=== PATIENT | female | born 2000 | race Caucasian/White ===

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

== ENCOUNTER 2021-01-09 10:35 | Emergency (ER) | payer MEDICAID, SELFPAY ==
[2021-01-09 10:52] VITALS: BP 121/73; PULSE 92; RESP 16; TEMP 36.6; O2SAT 100; BMI 29.9
--- NOTE | 2021-01-09 11:10 | W.ED.ABDPA2 ---
HPI - Abdominal Pain General: Chief Complaint: Nausea/Vomiting/Diarrhea Stated Complaint: N/V, AB/SIDE PAIN Time Seen by Provider: 01/09/21 10:51 History of Present Illness: Associated Symptoms: Denies chills, diarrhea, dysuria, fever(s), nausea, syncope and vomiting Related Data: Date of Last Menstrual Period: 12/19/20 Review of Systems General: Reports: 10 or more systems reviewed and unremarkable except in HPI and below Const: Denies: fever(s), chills or body aches Eyes: Denies: change in vision ENMT: Denies: throat pain Card: Denies: chest pain, edema or syncope Resp: Denies: dyspnea or productive cough GI: Denies: abdominal pain, nausea, vomiting or diarrhea : Denies: flank pain, dysuria or urinary frequency Musc: Denies: neck pain, back pain, extremity pain or extremity swelling Skin/Breast: Denies: rash or erythema Neuro: Denies: headache(s), numbness in extremities, weakness in extremities, lack of coordination or difficulty walking PFS ED PFSH: Social History (Updated 01/26/20 @ 15:08 by Carolee Zarate LPN) Smoking and tobacco status: never smoked Alcohol intake: never Female Reproductive History: Date of last menstrual period: 12/19/20 Course Vital Signs: Vital signs: Vital Signs Temperature 97.8 F 01/09/21 10:52 Pulse Rate 92 01/09/21 10:52 Respiratory Rate 16 01/09/21 10:52 Blood Pressure 121/73 01/09/21 10:52 Pulse Oximetry 100 01/09/21 10:52 Discharge Plan Discharge Prescriptions: No Action nitrofurantoin monohyd/m-cryst [Macrobid] 100 mg capsule 100 mg PO Q12H 5 Days Qty: 10 RF: 0 prednisone 20 mg tablet 20 mg PO DAILY 5 Days Qty: 5 RF: 0 ondansetron 4 mg tablet,disintegrating 4 mg PO Q6H PRN (Reason: nausea and vomiting) Qty: 14 RF: 0 Coding Level of Care Code ED Cable Installation Technician for Heidy Eaton
[2021-01-09 11:25] LABS: Basophils # 0.1 10^3/uL (0.0-0.1); Basophils % 0.7 %; Eosinophils # 0.2 10^3/uL (0.0-0.8); Eosinophils % 1.9 %; Hematocrit 40.5 % (37.0-47.0); Hemoglobin 13.2 g/dL (11.5-15.3); Lymphocytes # 3.1 10^3/uL (1.5-6.5); Lymphocytes % 38.7 %; Mean Corpuscular HGB Conc 32.6 g/dL (30.0-36.0); Mean Corpuscular Hemoglobin 27.8 pg (28.0-34.0); Mean Corpuscular Volume 85.3 fL (81-99); Mean Platelet Volume 11.5 fL (7.4-10.4); Monocytes # 0.8 10^3/uL (0.2-0.9); Monocytes % 10.4 %; Neutrophils # 3.88 10^3/uL (1.8-8.0); Neutrophils % 48.1 %; Nucleated Red Blood Cells % 0 %; Platelet Count 290 10^3/cmm (130-400); Red Blood Count 4.75 10^6/uL (4.1-5.3); Red Cell Distribution Width 12.6 % (12.1-15.1); White Blood Count 8.1 10^3/uL (4.5-13.0)
[2021-01-09 11:28] LABS: Add Urine Microscopic? YES; Bilirubin Urine Neg (Negative); Blood Urine 3+ (Negative); Glucose Urine UA Norm (Normal); Ketones Urine Negative (Negative); Leukocyte Esterase Urine Trace (Negative); Nitrate Urine Negative (Negative); Protein Urine Neg (Negative); Specific Gravity, Urine 1.015 (1.005-1.030); Urine Appearance SL Hazy (CLEAR); Urine Color Yellow (Yellow); Urobilinogen Urine Norm (Negative); pH Urine 6.5 (5-7)
[2021-01-09 11:34] LABS: Bacteria Urine 2+ /hpf; Squamous Epithelial Cell Urine 15-25 /hpf (0-5); WBC Urine 0-4 /hpf (0-5)
[2021-01-09 11:37] LABS: Add Urine Culture? No
[2021-01-09] MEDS: ondansetron 2 mg/ML SDV 2 mL 4 MG IVP (11:40)
[2021-01-09] MEDS: sodium chloride 0.9% 1,000 ML 999 ML IV (11:40)
--- NOTE | 2021-01-09 11:43 | ED_ITS ---
HPI - Nausea/Vomiting/Diarrhea General: Chief complaint: Nausea/Vomiting/Diarrhea Stated complaint: N/V, AB/SIDE PAIN Time Seen by Provider: 01/09/21 10:51 History of Present Illness: HPI Narrative: 20-year-old female presents emergency room comes in complaining nausea vomiting dizziness. She was seen about a month ago for the same thing states been going on since that time. She denies any fever sweats chills no dysuria urgency or frequency she refers to some pain in the left flank but has no urinary symptoms denies hematuria. She denies any hematochezia melena hematemesis coffee-ground emesis. MD elicited complaint: nausea and vomiting Onset (ago): week(s) Description of vomiting: food contents and watery Associated nausea: Yes Associated abdominal pain: Yes Location of pain: Diffuse Radiation: left flank Pain consistency: constant Severity: moderate Quality: cramping Exacerbating factors: none Relieving factors: none Associated symtoms: Reports fevers/chills, anorexia, malaise and nausea; Denies altered mental status, anxiety, bloating, change in vision, chest pain, cough, diaphoresis, decreased urine output, dizziness, dysuria, epistaxis, fatigue, fecal incontinence, headache(s), myalgias, numbness, palpitations, rash, short of breath, syncope, tenesmus, tinnitus or weakness Review of Systems Const: Reports: malaise; Denies: fatigue or diaphoresis Eyes: Denies: change in vision ENMT: Denies: tinnitus or epistaxis Card: Denies: chest pain, palpitations or syncope Resp: Denies: dyspnea, productive cough or non-productive cough GI: Reports: nausea; Denies: bloating or fecal incontinence : Denies: dysuria Skin/Breast: Denies: rash or pruritus Neuro: Denies: headache(s) or dizziness Psych: Denies: anxiety PFSH ED PFSH: Social History Smoking and tobacco status: never smoked Alcohol intake: never Female Reproductive History: Date of last menstrual period: 12/19/20 Physical Exam Const: COMMON NORMALS: no acute distress EXAM LIMITATIONS: no altered mental status GENERAL APPEARANCE: cooperative and comfortable ORIENTATION/CONSCIOUSNESS: Yes awake, Yes oriented to person, Yes oriented to place and Yes oriented to time HENMT: COMMON NORMALS: normocephalic, atraumatic and hearing grossly normal bilaterally HEAD & SCALP: normocephalic and atraumatic Neck/C-Spine: COMMON NORMALS: no JVD Resp: COMMON NORMALS: normal respiratory effort, No retractions, No use of accessory muscles and clear to auscultation bilaterally AUSCULTATION: clear to auscultation bilaterally Cardio: COMMON NORMALS: no JVD, regular rate, regular rhythm and No murmurs present (Cardio) RATE: regular rate RHYTHM: regular rhythm GI: COMMON NORMALS: Soft to palpation and No hepatosplenomegaly present AUSCULTATION: Yes normoactive bowel sounds PALPATION: Yes Soft to palpation, No Tenderness to palpation present (GI), No Guarding due to palpation present (GI) and Yes No hepatosplenomegaly present Extremity: COMMON NORMALS: normal to inspection, capillary refill normal, no clubbing, cyanosis or edema, no calf tenderness and no pedal edema Neuro: SENSORIUM/ORIENTATION: Yes oriented to person, Yes oriented to place and Yes oriented to time Skin: COMMON NORMALS: no rashes or lesions noted GENERAL SKIN EXAM: no rashes or lesions noted Course Vital Signs: Vital signs: Vital Signs Temperature 97.8 F 01/09/21 10:52 Pulse Rate 64 01/09/21 13:24 Respiratory Rate 16 01/09/21 13:24 Blood Pressure 121/73 01/09/21 10:52 Pulse Oximetry 99 01/09/21 13:24 MDM - Nausea/Vomiting/Diarrhea MDM Narrative: Medical decision making narrative: Viewed findings with the patient. It looks like probably getting symptoms mostly from ruptured ovarian cyst. She has been on Depo but has not been that helpful for her in talking with her. Encourage her to go back and see your primary care doctor or gynecology. She is complaining of dysuria when I talked her at the time of discharge her urine was not real convincing and look more like contaminant however since she is having symptoms I gave her 5 days of Macrobid. Lab Data: Labs: Lab Results 01/09/21 01/09/21 01/09/21 Range/Units 11:18 11:18 11:18 WBC 8.1 (4.5-13.0) 10^3/ uL RBC 4.75 (4.1-5.3) 10^6/u L Hgb 13.2 (11.5-15.3) g/dL Hct 40.5 (37.0-47.0) % MCV 85.3 (81-99) fL MCH 27.8 L (28.0-34.0) pg MCHC 32.6 (30.0-36.0) g/dL RDW 12.6 (12.1-15.1) % Plt Count 290 (130-400) 10^3/c mm MPV 11.5 H (7.4-10.4) fL Neut % (Auto) 48.1 % Lymph % (Auto) 38.7 % [place] % (Auto) 10.4 % Eos % (Auto) 1.9 % Baso % (Auto) 0.7 % Neut # (Auto) 3.88 (1.8-8.0) 10^3/u L Lymph # (Auto) 3.1 (1.5-6.5) 10^3/u L [place] # (Auto) 0.8 (0.2-0.9) 10^3/u L Eos # (Auto) 0.2 (0.0-0.8) 10^3/u L Baso # (Auto) 0.1 (0.0-0.1) 10^3/u L Nucleated RBC % (a uto) 0 % Nucleated RBCs # 0.0 /100WBC Sodium 138 (136-145) mmol/L Potassium 3.9 (3.5-5.1) mmol/L Chloride 104 (98-107) mmol/L Carbon Dioxide 25 (22-29) mmol/L Anion Gap 12.9 (5-19) BUN 13 (6-20) mg/dL Creatinine 0.7 (0.5-0.9) mg/dL GFR Calculation 107.8 (90-130) mL/min Glucose 70 (65-115) mg/dL Calculated Osmolal ity 285 (285-295) mOsm/k g Calcium 8.9 (8.5-10.5) mg/dL Total Bilirubin 1.0 (0.15-1.2) mg/dL AST 15 (0-32) U/L ALT 13 (0-33) U/L Alkaline Phosphata se 80 (35-105) IU/L Total Protein 7.0 (6.6-8.7) g/dL Albumin 4.6 (3.5-5.2) g/dL Globulin 2.4 (1.3-4.6) g/dL Lipase 25 (13-60) U/L HCG, Qual Negative (Negative) Urine Color (Yellow) Urine Appearance (CLEAR) Urine pH (5-7) Ur Specific Gravit y (1.005-1.030) Urine Protein (Negative) Urine Glucose (UA) (Normal) Urine Ketones (Negative) Urine Blood (Negative) Urine Nitrate (Negative) Urine Bilirubin (Negative) Urine Urobilinogen (Negative) mg/dL Ur Leukocyte Page ase (Negative) Urine RBC (0-2) /hpf Urine WBC (0-5) /hpf Ur Squamous Epith Cells (0-5) /hpf Amorphous Sediment Urine Bacteria (NONE) /hpf 01/09/21 Range/Units 11:18 WBC (4.5-13.0) 10^3/ uL RBC (4.1-5.3) 10^6/u L Hgb (11.5-15.3) g/dL Hct (37.0-47.0) % MCV (81-99) fL MCH (28.0-34.0) pg MCHC (30.0-36.0) g/dL RDW (12.1-15.1) % Plt Count (130-400) 10^3/c mm MPV (7.4-10.4) fL Neut % (Auto) % Lymph % (Auto) % [place] % (Auto) % Eos % (Auto) % Baso % (Auto) % Neut # (Auto) (1.8-8.0) 10^3/u L Lymph # (Auto) (1.5-6.5) 10^3/u L [place] # (Auto) (0.2-0.9) 10^3/u L Eos # (Auto) (0.0-0.8) 10^3/u L Baso # (Auto) (0.0-0.1) 10^3/u L Nucleated RBC % (a uto) % Nucleated RBCs # /100WBC Sodium (136-145) mmol/L Potassium (3.5-5.1) mmol/L Chloride (98-107) mmol/L Carbon Dioxide (22-29) mmol/L Anion Gap (5-19) BUN (6-20) mg/dL Creatinine (0.5-0.9) mg/dL GFR Calculation (90-130) mL/min Glucose (65-115) mg/dL Calculated Osmolal ity (285-295) mOsm/k g Calcium (8.5-10.5) mg/dL Total Bilirubin (0.15-1.2) mg/dL AST (0-32) U/L ALT (0-33) U/L Alkaline Phosphata se (35-105) IU/L Total Protein (6.6-8.7) g/dL Albumin (3.5-5.2) g/dL Globulin (1.3-4.6) g/dL Lipase (13-60) U/L HCG, Qual (Negative) Urine Color Yellow (Yellow) Urine Appearance Sl hazy (CLEAR) Urine pH 6.5 (5-7) Ur Specific Gravit y 1.015 (1.005-1.030) Urine Protein Neg (Negative) Urine Glucose (UA) Norm (Normal) Urine Ketones Negative (Negative) Urine Blood 3+ H (Negative) Urine Nitrate Negative (Negative) Urine Bilirubin Neg (Negative) Urine Urobilinogen Norm (Negative) mg/dL Ur Leukocyte Page ase Trace H (Negative) Urine RBC 5-10 H (0-2) /hpf Urine WBC 0-4 H (0-5) /hpf Ur Squamous Epith Cells 15-25 H (0-5) /hpf Amorphous Sediment Not Reportable Urine Bacteria 2+ H (NONE) /hpf Discharge Plan Discharge Patient Disposition: Home Clinical Impression: Ovarian cyst, Nausea & vomiting, Cystitis Condition: Stable Prescriptions: New Zofran 4 mg tablet 4 mg PO Q6H PRN (Reason: nausea and vomiting) Qty: 20 RF: 0 diclofenac sodium 75 mg tablet,delayed release (DR/EC) 75 mg PO Q12H PRN (Reason: pain) Qty: 20 RF: 0 Discontinued ibuprofen 800 mg tablet 800 mg PO TID PRN (Reason: Pain) RF: 0 No Action ondansetron 4 mg tablet,disintegrating 4 mg PO Q6H PRN (Reason: nausea and vomiting) Qty: 14 RF: 0 Clindacin P 1 % swab See Rx Instructions .ROUTE .COMPLEX RF: 0 DOK 100 mg capsule 100 mg PO BID PRN (Reason: Constipation) RF: 0 montelukast 10 mg tablet 10 mg PO DAILY RF: 0 Claritin 10 mg Tablet 10 mg PO DAILY PRN (Reason: Allergy Symptoms) RF: 0 medroxyprogesterone 150 mg/mL syringe 150 mg IM Q90D RF: 0 Discharge Orders: Discharge ED (Routine); Ordered 01/09/21 Ordered By: Nile Bravo Referrals: Langford,MAYTE Carlos [Primary Care Provider] - Discharge Diet: Usual diet Discharge Activity: Increase activity as tolerated Patient Instructions: Opioid Safety Coding Level of Care Code ED Refractory Worker for Chg Fwd Exam Comprehensive
[2021-01-09 11:44] LABS: HCG, Serum Qual Negative (Negative)
[2021-01-09 11:45] LABS: Alanine Aminotransferase 13 U/L (0-33); Albumin Level 4.6 g/dL (3.5-5.2); Alkaline Phosphatase 80 IU/L (35-105); Anion Gap 12.9 (5-19); Aspartate Amino Transferase 15 U/L (0-32); Blood Urea Nitrogen 13 mg/dL (6-20); Calcium 8.9 mg/dL (8.5-10.5); Carbon Dioxide 25 mmol/L (22-29); Chloride 104 mmol/L (98-107); Globulin 2.4 g/dL (1.3-4.6); Glomerular Filtration Rate 107.8 mL/min (90-130); Glucose 70 mg/dL (65-115); Lipase 25 U/L (13-60); Osmolality Calculated 285 mOsm/kg (285-295); Potassium 3.9 mmol/L (3.5-5.1); Sodium 138 mmol/L (136-145)
--- NOTE | 2021-01-09 12:05 | CT_ITS ---
WS: [id number] CT ABDOMEN PELVIS TECHNIQUE: Contrast-enhanced CT of the abdomen and pelvis with coronal and sagittal reformatted image s. CLINICAL INFORMATION: abd pain COMPARISON: 6 26,018 DLP: 1219.[address] scans at [facility] use at least one of these dose optimization techniques: automat ed exposure control; mA and/or kV adjustment per patient size (includes targeted exams where dose is matched to clinical indication); or iterative reconstruction. FINDINGS: Normal liver. Normal portal vein and splenic vein. Gallbladder is contracted. Normal spleen. Normal G E junction. Lung bases are well aerated. Normal pancreatic parenchymal enhancement. Normal portal vei n and splenic vein. Adrenal glands are normal. No hydronephrosis in either kidney. Tiny fat-containin g umbilical hernia. Urine distended bladder. Heterogeneous physiologic uterine enhancement with a small amount of free fl uid in the cul-de-sac. Multiple follicular ovaries bilaterally. Normal sigmoid colon. Colon is decomp ressed. No evidence of small or large obstruction. Normal appendix in the right lower quadrant. No ev idence of acute appendicitis. No abdominal or pelvic lymphadenopathy. No inguinal lymphadenopathy. Mi ld disc bulging L5-S1. CT/CT abdomen pelvis w con* [id number] IMPRESSION: 1. Appendix is normal in right lower quadrant. No evidence of acute appendicit is. 2. Heterogeneous physiologic uterine enhancement with a small amount of free f luid in the cul-de-sac. 3. Multifollicular ovaries bilaterally. 4. No evidence of small or large bowel obstruction. 5. No hydronephrosis in either kidney. 6. Gallbladder is contracted.
[2021-01-09] MEDS: iohexol 300 mg/mL 100 mL Btl IV (12:18)
[2021-01-09 13:24] VITALS: PULSE 64; RESP 16; O2SAT 99
--- NOTE | 2021-01-09 18:01 | PC.NURSE ---
antibiotic called into [facility] pharmacy in [place] at [phone]
== END 2021-01-09 13:25 | disposition home or self-care (01) ==
PROVIDERS: Emergency Provider Family Medicine; PCP Nurse Practitioner Family
DX: N30.90 Cystitis, unspecified without hematuria (principal); N83.209 Unspecified ovarian cyst, unspecified side
CPT/HCPCS: 74177; 80053; 81001; 83690; 84703; 85025; 96361; 96374; 99283; J2405; J7030; Q9967

== ENCOUNTER 2021-02-12 13:13 | Outpatient (CLI) | payer MEDICAID, SELFPAY ==
--- NOTE | 2021-02-12 13:22 | XRR_ITS ---
PROCEDURE INFORMATION: Exam: XR Right Foot Exam date and time: 02/12/2021 1:23 PM Age: 20 years old Clinical indication: Pain; Foot; Right; Additional info: Pain R foot TECHNIQUE: Imaging protocol: XR Right foot. Views: 3 or more views. COMPARISON: CR Foot 3 views, RIGHT* [id number] 08/07/2018 2:52 PM FINDINGS: Bones/joints: Negative for acute bony abnormality. Soft tissues: Normal. XR/XR foot RT min 3V* [id number] IMPRESSION: No acute findings.
== END 2021-02-12 13:14 | disposition home or self-care (01) ==
PROVIDERS: PCP Nurse Practitioner Family; Visit Provider Nurse Practitioner Family
DX: M79.671 Pain in right foot (principal)
CPT/HCPCS: 73630

== ENCOUNTER 2021-03-17 18:44 | Emergency (ER) | payer MEDICAID, SELFPAY ==
[2021-03-17 18:56] VITALS: BMI 26.6
[2021-03-17 21:57] VITALS: BP 155/71; PULSE 76; RESP 20; O2SAT 98
[2021-03-17 22:24] LABS: Bilirubin Urine Neg (Negative); Glucose Urine UA Norm (Normal); Ketones Urine Negative (Negative); Nitrate Urine Negative (Negative); Protein Urine Neg (Negative); Urine Appearance Clear (CLEAR); Urine Color Yellow (Yellow); Urobilinogen Urine Norm (Negative); pH Urine 5 (5-7)
[2021-03-17 22:25] LABS: Add Urine Microscopic? YES; Blood Urine 2+ (Negative); Leukocyte Esterase Urine Negative (Negative)
[2021-03-17 22:30] LABS: Add Urine Culture? No; Bacteria Urine 1+ /hpf; Squamous Epithelial Cell Urine 0-4 /hpf (0-5)
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
[2021-03-17 23:06] VITALS: BP 117/76; PULSE 82; RESP 18; O2SAT 99
[2021-03-17] MEDS: HYDROcodone-acetaminophen 5-325 mg Tablet 1 TAB PO (23:10)
[2021-03-18 00:04] VITALS: BP 140/82; PULSE 70; RESP 16; TEMP 36.9; O2SAT 98
== END 2021-03-18 00:06 | disposition home or self-care (01) ==
PROVIDERS: Emergency Medicine; Emergency Provider Nurse Practitioner Family; PCP Nurse Practitioner Family
DX: S20.211A Contusion of right front wall of thorax, initial encounter (principal); F17.210 Nicotine dependence, cigarettes, uncomplicated; Y04.2XXA Assault by strike against or bumped into by another person, initial encounter
CPT/HCPCS: 71101; 76705; 81001; 81025; 99283

== ENCOUNTER → 2021-03-19 13:39 | Outpatient (BNVA) | payer MEDICAID, SELFPAY | PROVIDERS: PCP Nurse Practitioner Family; Visit Provider Psychiatry & Neurology Psychiatry | DX: F39 Unspecified mood [affective] disorder (principal); Q86.0 Fetal alcohol syndrome (dysmorphic) | CPT/HCPCS: 90792 ==

== ENCOUNTER 2021-03-22 22:15 | Emergency (ER) | payer MEDICAID, SELFPAY ==
[2021-03-22 22:51] VITALS: BP 120/73; PULSE 77; RESP 16; TEMP 36.8; O2SAT 100; BMI 26.6
--- NOTE | 2021-03-23 01:04 | W.ED.BACK ---
HPI - Back Pain/Injury General: Chief Complaint: Back Pain/Injury Stated Complaint: pain R side rib Time Seen by Provider: 03/23/21 01:04 History of Present Illness: HPI Narrative: Patient comes in for right posterior rib pain persistent from injury on . Patient appears well. no acute distress noted. appears in mild pain Review of Systems General: Reports: 10 or more systems reviewed and unremarkable except in HPI and below Musc: Reports: other (right rib pain) PFS ED PFSH: Medical History (Updated 03/23/21 @ 01:11 by EDUARDO Posey) alcohol syndrome Mood disorder Social History Smoking and tobacco status: current some day smoker Alcohol intake: never Female Reproductive History: Date of last menstrual period: 12/14/20 Physical Exam Const: COMMON NORMALS: no acute distress and patient oriented x3 GENERAL APPEARANCE: cooperative HENMT: COMMON NORMALS: normocephalic and Normal external nose present HEAD & SCALP: normal to inspection and normocephalic NOSE: Normal external nose present Eye: GENERAL EYE: appearance normal, both eyes and all related structures Neck/C-Spine: COMMON NORMALS: full ROM Chest: OTHER: right posterior rib pain, no bruising noted to area of tenderness Resp: COMMON NORMALS: normal respiratory effort EFFORT & INSPECTION: Yes able to speak in complete sentences Cardio: COMMON NORMALS: regular rate and regular rhythm RATE: regular rate RHYTHM: regular rhythm GI: COMMON NORMALS: non-tender : COMMON NORMALS: Yes no CVA tenderness BLADDER/KIDNEY EXAM: Yes no CVA tenderness Back/Pelvis: COMMON NORMALS: no CVA tenderness and thoracic and lumbar spine normal to inspection Extremity: COMMON NORMALS: normal to inspection Neuro: COMMON NORMALS: patient oriented x3 and moves all extremities Psych: COMMON NORMALS: mental status grossly normal and cooperative Skin: COMMON NORMALS: no rashes or lesions noted GENERAL SKIN EXAM: no rashes or lesions noted Course Vital Signs: Vital signs: Vital Signs Temperature 98.2 F 03/22/21 22:51 Pulse Rate 77 03/22/21 22:51 Respiratory Rate 16 03/22/21 22:51 Blood Pressure 120/73 03/22/21 22:51 Pulse Oximetry 100 03/22/21 22:51 MDM - Back Pain/Injury MDM Narrative: Medical decision making narrative: Patient comes in for right rib persistent pain after injury one week ago. Exam notes right posterior rib tenderness, no sign of bruising or crepitus. Differential diagnosis contusion rib, malingering vs drug seeking behavior, occult rib fracture. Although a rib fracture may be present it would be minute and does not require repeat imaging, Patient was reassured that she has a bruise and it may take two to four weeks to heal, she needs to stay active and f/u with primary care for further treatment. Discharge Plan Discharge Patient Disposition: Home Clinical Impression: Contusion of rib on right side Qualifiers: Encounter type: subsequent encounter Qualified Code(s): S20.211D - Contusion of right front wall of thorax, subsequent encounter Condition: Stable Prescriptions: New diclofenac sodium 50 mg tablet,delayed release (DR/EC) 50 mg PO BID Qty: 10 RF: 0 No Action ranitidine HCl 150 mg tablet PO RF: 0 DOK 100 mg capsule 100 mg PO BID PRN (Reason: Constipation) RF: 0 Claritin 10 mg Tablet 10 mg PO DAILY PRN (Reason: Allergy Symptoms) RF: 0 Discharge Orders: Discharge ED (Routine); Ordered 03/23/21 Ordered By: Manuel Beard Referrals: Breanna Langford APN [Primary Care Provider] - Discharge Diet: Usual diet Discharge Activity: Increase activity as tolerated Patient Instructions: Contusion in Children (ED), Opioid Safety Activity Restrictions/Additional Instructions: continue with acetaminophen or ibuprofen for pain, Use ice or heat for further pain relief. Follow-up with primary care in one week, return to ER for new concerns Coding Level of Care Code ED Lead Based Paint Technician for Heidy Fwzeferino Exam Comprehensive
[2021-03-23] MEDS: ketorolac 30 mg/mL INJ IM (01:22)
[2021-03-23] MEDS: orphenadrine 30 mg/mL Inj 2 mL 60 MG IM (01:24)
[2021-03-23 01:25] VITALS: BP 111/74; PULSE 90; RESP 17; O2SAT 100
[2021-03-23 01:42] VITALS: BP 114/76; PULSE 90; RESP 16; O2SAT 100
== END 2021-03-23 01:44 | disposition home or self-care (01) ==
PROVIDERS: Emergency Provider Nurse Practitioner Family; PCP Nurse Practitioner Family
DX: S20.211A Contusion of right front wall of thorax, initial encounter (principal); F17.210 Nicotine dependence, cigarettes, uncomplicated; X58.XXXA Exposure to other specified factors, initial encounter
CPT/HCPCS: 96372; 99283; J1885; J2360

== ENCOUNTER → 2021-03-23 11:30 | Outpatient (BNVA) | payer MEDICAID, SELFPAY | PROVIDERS: PCP Nurse Practitioner Family; Visit Provider Nurse Practitioner Family | DX: Z11.3 Encounter for screening for infections with a predominantly sexual mode of transmission (principal) | CPT/HCPCS: 81025; 87491; 87591; 87661 ==

== ENCOUNTER → 2021-04-20 12:45 | Outpatient (BNVA) | payer MEDICAID, SELFPAY | PROVIDERS: PCP Nurse Practitioner Family; Visit Provider Psychiatry & Neurology Psychiatry | DX: F39 Unspecified mood [affective] disorder (principal); F79 Unspecified intellectual disabilities; Q86.0 Fetal alcohol syndrome (dysmorphic) | CPT/HCPCS: 99214 ==

== ENCOUNTER → 2022-11-04 15:50 | Outpatient (BNVA) | payer OTHER, SELFPAY | PROVIDERS: PCP Nurse Practitioner Family; Visit Provider Obstetrics & Gynecology | DX: N92.6 Irregular menstruation, unspecified (principal) | CPT/HCPCS: 83036; 83525; 84443 ==

== ENCOUNTER → 2023-02-05 14:20 | Outpatient (BNVA) | payer OTHER, SELFPAY | PROVIDERS: PCP Nurse Practitioner Family; Visit Provider Obstetrics & Gynecology | DX: Z01.419 Encounter for gynecological examination (general) (routine) without abnormal findings (principal) | CPT/HCPCS: 88175 ==

== ENCOUNTER → 2023-06-19 14:59 | Outpatient (BNVA) | payer OTHER, SELFPAY | PROVIDERS: PCP Nurse Practitioner Family; Visit Provider Podiatrist Foot & Ankle Surgery | DX: M79.671 Pain in right foot (principal); M79.672 Pain in left foot; M72.2 Plantar fascial fibromatosis; M79.604 Pain in right leg; M79.605 Pain in left leg; M21.6X1 Other acquired deformities of right foot; M21.6X2 Other acquired deformities of left foot | CPT/HCPCS: 73630 ==

== ENCOUNTER 2023-07-28 06:00 | Outpatient (RCR) | payer MEDICARE, SELFPAY | END 2023-08-07 23:59 | disposition home or self-care (01) | LOC: TPT 06:00 | PROVIDERS: PCP Nurse Practitioner Family; Visit Provider Nurse Practitioner Family | DX: M94.0 Chondrocostal junction syndrome [Tietze] (principal) | CPT/HCPCS: 97110; 97162 ==

== ENCOUNTER 2023-08-08 06:00 | Outpatient (RCR) | payer MEDICARE, SELFPAY | END 2023-09-07 23:59 | disposition home or self-care (01) | LOC: TPT 06:00 | PROVIDERS: PCP Nurse Practitioner Family; Visit Provider Nurse Practitioner Family | DX: M94.0 Chondrocostal junction syndrome [Tietze] (principal) | CPT/HCPCS: 97110 ==

== ENCOUNTER 2023-09-02 23:38 | Emergency (ER) | payer MEDICARE, MEDICAID, SELFPAY ==
[2023-09-02 23:44] VITALS: BP 122/85; PULSE 91; RESP 16; TEMP 36.4; O2SAT 98; BMI 33.3
--- NOTE | 2023-09-03 00:11 | ED_ITS ---
HPI - General Adult General: Chief complaint: Abdominal Pain Stated complaint: left arm, right leg pain, headache Time Seen by Provider: 09/02/23 23:55 Source: patient and family Mode of arrival: ambulatory Limitations: no limitations History of Present Illness: Patient is a 22-year-old female presents to ED today with a complaint of pain throughout her entire left arm that she describes as a burning sensation. She is also having similar intermittent discomforts to the right lower leg near her foot as well as symptoms to the right posterior scalp. Patient denies any injury or trauma however later states she does physical therapy due to bad posture and was doing some exercising involving wall push-ups. Patient has not noticed any redness or swelling to any of the area. She has not noticed any coolness or pallor. She does have another complain of mild body aches and positive COVID exposure. Denies cough, shortness of breath, difficulty breathing, or fevers. Onset (ago): day(s) Severity: moderate Quality: burning Pain Consistency: constant and intermittent Relieving factors: none Exacerbating factors: movement Associated symptoms: Deny chest pain, dyspnea, malaise, nausea, palpitations, syncope or vomiting Treatments prior to arrival: none Review of Systems Const: Reports: body aches; Denies: fever(s), chills, fatigue or malaise Eyes: Denies: change in vision, blurry vision, photophobia, floaters or seeing flashes Card: Denies: chest pain, palpitations, irregular heart rhythm, edema, swelling of feet/ankles, lightheadedness, syncope, pre-syncope, dyspnea on exertion or orthopnea Resp: Denies: dyspnea GI: Denies: abdominal pain, nausea, vomiting or diarrhea Musc: Reports: extremity pain; Denies: neck pain, back pain, extremity swelling, joint pain, joint swelling, joint redness, joint warmth or joint stiffness Neuro: Denies: numbness in extremities, weakness in extremities or sensory changes PFSH ED PFSH: Medical History Intellectual disability Mood disorder alcohol syndrome Family History Family/Other Diabetes uncle Father Heart disease Grandfather Heart disease Other Breast cancer Denies family history of Colon cancer Ovarian cancer Hypercholesteremia Hypertension Uterine cancer Thyroid disease Stroke Social History Substance/Drug Use: never Female Reproductive History: Date of last menstrual period: 07/24/23 Physical Exam Const: COMMON NORMALS: no acute distress, patient oriented x3, no limitations, alert and well nourished GENERAL APPEARANCE: cooperative HENMT: COMMON NORMALS: normocephalic and atraumatic HEAD & SCALP: normal to inspection, normocephalic and atraumatic FACE & SINUS: normal facial exam and face symmetric Eye: GENERAL EYE: appearance normal, both eyes and all related structures Neck/C-Spine: COMMON NORMALS: full ROM, no lymphadenopathy and no meningeal signs GENERAL: Yes normal visual inspection, No anterior neck swelling and No submandibular swelling Chest: COMMONS NORMALS: normal inspection of the chest and normal palpation of entire chest wall Resp: COMMON NORMALS: normal respiratory effort and clear to auscultation bilaterally AUSCULTATION: clear to auscultation bilaterally Cardio: COMMON NORMALS: regular rate and regular rhythm RATE: regular rate RHYTHM: regular rhythm Back/Pelvis: COMMON NORMALS: thoracic and lumbar spine normal to inspection, no thoracic nor lumbar tenderness and thoraco-lumbar ROM normal Extremity: COMMON NORMALS: normal to inspection, capillary refill normal, no joint enlargement, no clubbing, cyanosis or edema, no calf tenderness and no pedal edema GENERAL: Yes normal exam except as noted LEFT UPPER EXTREMITY: Yes shoulder joint, Yes upper arm, Yes elbow joint, Yes lower arm and Yes wrist OTHER: pt reporting pain throughout L UE worse with any form of palpation or movement; there are no abnormal objective physical findings to extremity; no edema/swelling, normal color/temp, normal distal pulses/cap refill, sensation intact Neuro: HERMINIA COMA SCALE: document GCS findings [place] coma scale eye opening: Spontaneous [place] coma scale verbal response: Orientated [place] coma scale motor response: Obey commands [place] coma scale total score: 15 COMMON NORMALS: patient oriented x3, moves all extremities, no focal motor deficits and no sensory deficits noted SENSORIUM/ORIENTATION: Yes alert MENINGEAL SIGNS: Yes no meningeal signs Skin: COMMON NORMALS: no rashes or lesions noted GENERAL SKIN EXAM: no rashes or lesions noted Course Vital Signs: Vital signs: Vital Signs Temperature 97.6 F 09/02/23 23:44 Pulse Rate 91 09/02/23 23:44 Respiratory Rate 16 09/02/23 23:44 Blood Pressure 122/85 09/02/23 23:44 Pulse Oximetry 98 09/02/23 23:44 Oxygen Delivery Me thod Room Air 09/02/23 23:44 MDM - General Adult Medical Decision Making Patient here with complaints of bodyaches and positive COVID exposure as well as nonspecific complaints to her right posterior scalp, left arm, and right lower leg/foot. There are no clinical/objective findings to the extremities. I have no concern for emergent processes regarding these. Will obtain COVID PCR swab. Recommend OTC analgesics as well as ice and heat. Recommend follow-up with primary care later this week if symptoms persist. Return to ED precautions given. Medical Records I reviewed the patient's medical records. No radiology studies performed this visit Discharge Plan Discharge Patient Disposition: Home Clinical Impression: Exposure to 2019-nCoV Upper extremity pain Qualifiers: Laterality: left Qualified Code(s): M79.602 - Pain in left arm Condition: Stable Prescriptions: No Action ibuprofen 800 mg tablet PO ondansetron HCl 4 mg tablet PO pantoprazole 40 mg tablet,delayed release (DR/EC) PO furosemide 20 mg tablet PO Discharge Orders: Discharge ED (Routine); Ordered 09/03/23 Ordered By: Valeri Hussein Referrals: Dannielle Miller FNP [Primary Care Provider] - Coding Level of Care Code ED Janitor Caretaker for Heidy Eaton
[2023-09-03 02:19] LABS: Adenovirus Not Detected (NOT DETECT); Chlamydia Pneumoniae Not Detected (NOT DETECT); Coronavirus 229E,HKU1,NL63,OC4 Not Detected (NOT DETECT); Human Metapneumovirus Not Detected (NOT DETECT); Human Rhinovirus/Enterovirus Not Detected (NOT DETECT); Influenza A Not Detected (NOT DETECT); Influenza A H1 Not Detected (NOT DETECT); Influenza A H1-2009 Not Detected (NOT DETECT); Influenza A H3 Not Detected (NOT DETECT); Influenza B Not Detected (NOT DETECT); Mycoplasma Pneumoniae Not Detected (NOT DETECT); Parainfluenza Virus Type 1 Not Detected (NOT DETECT); Parainfluenza Virus Type 2 Not Detected (NOT DETECT); Parainfluenza Virus Type 3 Not Detected (NOT DETECT); Parainfluenza Virus Type 4 Not Detected (NOT DETECT); Respiratory Syncytial Virus A Not Detected (NOT DETECT); Respiratory Syncytial Virus B Not Detected (NOT DETECT); SARS-COV-2 Not Detected (NOT DETECT)
== END 2023-09-03 00:49 | disposition home or self-care (01) ==
PROVIDERS: Emergency Provider Physician Assistant; PCP Nurse Practitioner Family
DX: M79.602 Pain in left arm (principal); Z20.822 Contact with and (suspected) exposure to COVID-19; Q86.0 Fetal alcohol syndrome (dysmorphic)
CPT/HCPCS: 87635; 99283

== ENCOUNTER → 2023-11-02 10:24 | Outpatient (BNVA) | payer MEDICARE, SELFPAY | PROVIDERS: PCP Nurse Practitioner Family; Visit Provider Nurse Practitioner | DX: J02.9 Acute pharyngitis, unspecified (principal) | CPT/HCPCS: 87880 ==

== ENCOUNTER → 2023-11-03 14:40 | Outpatient (BNVA) | payer MEDICARE, SELFPAY | PROVIDERS: PCP Nurse Practitioner Family; Visit Provider Obstetrics & Gynecology | DX: N97.9 Female infertility, unspecified (principal); N91.1 Secondary amenorrhea | CPT/HCPCS: 80053; 84146; 84443; 85025 ==

== ENCOUNTER → 2023-11-05 08:11 | Outpatient (BNVA) | payer MEDICARE, SELFPAY | PROVIDERS: PCP Nurse Practitioner Family; Visit Provider Obstetrics & Gynecology | DX: N97.9 Female infertility, unspecified (principal) | CPT/HCPCS: 76830 ==

== ENCOUNTER → 2023-12-19 13:48 | Outpatient (BNVA) | payer MEDICARE, SELFPAY | PROVIDERS: PCP Nurse Practitioner Family; Visit Provider Nurse Practitioner Family | DX: M79.672 Pain in left foot (principal); M25.572 Pain in left ankle and joints of left foot | CPT/HCPCS: 73630 ==

== ENCOUNTER 2024-10-05 11:23 | Outpatient (CLI) | payer MEDICARE, SELFPAY ==
--- NOTE | 2024-10-05 11:49 | XR_ITS ---
WS: [id number] Exam: XR hand RT 2V [id number] Date/Time of Exam: 10/05/2024 12:05 PM Reason For Exam: PAIN IN RIGHT FINGER No acute fracture. Old fracture deformity of the fifth metacarpal. The joints are preserved. Normal s oft tissues. XR/XR hand RT 2V [id number] IMPRESSION: 1. Negative RIGHT hand.
== END 2024-10-05 11:24 | disposition home or self-care (01) ==
PROVIDERS: PCP Nurse Practitioner Family; Visit Provider Nurse Practitioner Family
DX: M79.644 Pain in right finger(s) (principal); Z87.81 Personal history of (healed) traumatic fracture
CPT/HCPCS: 73120

== ENCOUNTER 2025-01-30 18:05 | Emergency (ER) | payer MEDICARE, SELFPAY ==
[2025-01-30 18:07] VITALS: BP 130/86; PULSE 92; TEMP 36.3; O2SAT 99
[2025-01-30 18:50] VITALS: BP 126/96; PULSE 89; RESP 18; O2SAT 100
--- NOTE | 2025-01-30 19:45 | ED_ITS ---
HPI - Dental/Oral 2 General: Chief complaint: Dental/Oral Stated complaint: Tooth Ache Time Seen by Provider: 01/30/25 18:44 Source: patient Mode of arrival: ambulatory Limitations: no limitations History of Present Illness: Patient is a 24-year-old female that presents to the emergency department with dental pain in the right lower jaw. She states she recently had some teeth taken out of the left upper jaw. She reports nausea but denies any vomiting. She denies any fever. She states the pain has been getting steadily worse. She does have some cavities in the tooth in the lower jaw. She denies any significant swelling of the gumline. Patient does not think that she is but has not had a period in a month. She presents to the emergency department for further evaluation and treatment. Associated symptoms: Denies fever(s) or tongue swelling Related Data Previous Rx's ?Medication ?Instructions ?Recorded amoxicillin 875 mg-potassium 1 tab PO BID #19 tabs clavulanate 125 mg tablet chlorhexidine gluconate 0.12 % 15 ml buccal DAILY #120 mL 01/30/25 mouthwash (Peridex) lidocaine HCl 2 % mucosal solution 15 ml mucous membra ne Q4H PRN pain 01/30/25 (Lidocaine Viscous) #100 mL naproxen 500 mg tablet 500 mg PO Q12H PRN pain #10 tabs 01/30/25 ondansetron 4 mg disintegrating 4 mg PO .q6-8h PRN conner sea and 01/30/25 tablet vomiting #10 tabs Allergies Allergy/AdvReac Type Severity Reaction Status Date / Time No Known Allergies Allergy Verified 01/30/25 18:12 Review of Systems 2 General: Reports: 10 or more systems reviewed and unremarkable except in HPI and below Const: Denies: fever(s) or chills Eyes: Reports: change in vision ENMT: Reports: dental pain (Right lower jaw) Card: Denies: chest pain, palpitations or irregular heart rhythm Resp: Denies: dyspnea, productive cough or non-productive cough GI: Reports: nausea; Denies: abdominal pain or vomiting : Denies: difficulty voiding or dysuria Musc: Denies: neck pain or back pain Skin/Breast: Denies: rash or erythema Neuro: Denies: headache(s), numbness in extremities or weakness in extremities Psych: Denies: anxiety Endo: Denies: polyuria or polydipsia Frankie/Lymph: Denies: easy bruising or easy bleeding All/Imm: Denies: urticaria, throat swelling or tongue swelling PFSH ED 2 PFSH: Medical History (Updated 01/30/25 @ 20:05 by FARHAN Khan) Ankle pain, left Intellectual disability Mood disorder alcohol syndrome Surgical History (Updated 01/30/25 @ 19:50 by FARHAN Khna) History of dental surgery Family History Family/Other Diabetes uncle Father Heart disease Grandfather Heart disease Other Breast cancer Denies family history of Colon cancer Ovarian cancer Hypercholesteremia Hypertension Uterine cancer Thyroid disease Stroke Social History (Updated 01/30/25 @ 19:50 by FARHAN Khan) Smoking and tobacco/nicotine status: current some day tobacco/nicotine user (vape) e-cigarettes Substance/Drug Use: never Physical Exam 2 Const: COMMON NORMALS: no acute distress and alert GENERAL APPEARANCE: c ooperative HENMT: COMMON NORMALS: normocephalic and atraumatic HEAD & SCALP: n ormocephalic and atraumatic TEETH & GINGIVA: Yes caries and Yes gingiva abnormal (Gingival injection) TEETH & GINGIVA IMAGES: 1. Tender to touch, dental caries. No significant gingival swelling but there is some inflammation noted. Eye: COMMON NORMALS: conjunctivae normal CONJUNCTIVA: Yes conjunctivae normal Neck/C-Spine: COMMON NORMALS: full ROM; negative for no lymphadenopathy Resp: COMMON NORMALS: normal respiratory effort and clear to auscultation bilaterally AUSCULTATION: clear to auscultation bilaterally, no crackles, no rales, no rhonchi and no wheezes Cardio: COMMON NORMALS: regular rate and regular rhythm RATE: regular rate RHYTHM: regular rhythm Back/Pelvis: COMMON NORMALS: thoraco-lumbar ROM normal Extremity: COMMON NORMALS: normal to inspection and no pedal edema Neuro: SENSORIUM/ORIENTATION: Yes alert SPEECH: speech normal Psych: COMMON NORMALS: cooperative ATTITUDE: Yes calm Skin: COMMON NORMALS: no rashes or lesions noted GENERAL SKIN EXAM: no rashes or lesions noted Course 2 Reevaluation(s): Reevaluation #1: Patient states the viscous lidocaine is helping with her symptoms. Her test was negative we will give her some ibuprofen in addition to the medications that have already been given. Time: 20:02 Vital Signs: Vital signs: Vital Signs Temperature 97.4 F L 01/30/25 18:07 Pulse Rate 89 01/30/25 18:50 Respiratory Rate 18 01/30/25 18:50 Blood Pressure 126/96 01/30/25 18:50 Pulse Oximetry 100 01/30/25 18:50 Oxygen Delivery Me thod Room Air 01/30/25 18:07 MDM - Dental/Oral Medical Decision Making Patient was advised of the exam findings. She does have some dental caries and the tooth is very tender on the right lower jaw. There is no obvious pointing abscess however there is some gingival inflammation which is concerning for gingivitis. Patient was advised to use the medications as directed and follow- up with her dentist this week for further evaluation and treatment. I also advised that she return to the emergency department with any worsening symptoms such as increased pain, fever, vomiting or any other worsening symptoms. The patient expressed understanding. Differential Diagnosis Likely gingival abscess, dental caries, toothache and dental abscess Lab Data I reviewed the patient's lab results. Laboratory Results HCG, Qual Negative (Negative) 01/30/25 19:50 No radiology studies performed this visit Critical Care Time 2 Critical Care Time: Critical Care Time: No Discharge Plan Discharge Patient Disposition: Home Clinical Impression: Dental infection, Gingivitis, Dental caries Condition: Stable Prescriptions: New amoxicillin-pot clavulanate 875-125 mg tablet 1 tab PO BID Qty: 19 0RF lidocaine HCl [Lidocaine Viscous] 2 % solution 15 ml mucous membrane Q4H PRN (Reason: pain) Qty: 100 0RF Rx Instructions: Swish and spit ondansetron 4 mg tablet,disintegrating 4 mg PO .q6-8h PRN (Reason: nausea and vomiting) Qty: 10 0RF naproxen 500 mg tablet 500 mg PO Q12H PRN (Reason: pain) Qty: 10 0RF chlorhexidine gluconate [Peridex] 0.12 % mouthwash 15 ml buccal DAILY Qty: 120 0RF Rx Instructions: Swish and spit Discharge Orders: Discharge ED (Routine); Ordered 01/30/25 Ordered By: Cornelio Tobias Referrals: Dannielle Miller FNP [Primary Care Provider, Family Practice] Discharge Diet: Soft Mechanical Discharge Activity: Resume usual activity Patient Instructions: Opioid Safety, Pain Management, Dental Abscess (ED) Activity Restrictions/Additional Instructions: Use the medications as directed. Your prescriptions were sent electronically to the [facility] pharmacy in [facility]. Warm salt water rinses 3 times a day. Follow-up with your dentist as soon as possible. Warm compresses 15 minutes at a time, 5 times throughout the day as needed for pain. If the warm compress makes the swelling worse you may alternate with ice. Return to the emergency department with any worsening symptoms. Print Language: Tamazight Coding Level of Care Code ED Electrical Appliance Servicer for Heidy Eaton
[2025-01-30] MEDS: amoxicillin-clav 875-125 mg Tablet 1 TAB PO (19:49)
[2025-01-30] MEDS: lidocaine 2% viscous 15 mL UDC MUCOUS MEM (19:49)
[2025-01-30 19:57] LABS: HCG Qualitative Urine. Negative (Negative)
[2025-01-30] MEDS: ibuprofen 600 mg Tablet PO (20:03)
== END 2025-01-30 20:49 | disposition home or self-care (01) ==
PROVIDERS: Emergency Provider Physician Assistant; PCP Nurse Practitioner Family
DX: K04.7 Periapical abscess without sinus (principal); K05.10 Chronic gingivitis, plaque induced; K02.9 Dental caries, unspecified
CPT/HCPCS: 12345; 81025; 99283; J9999

== ENCOUNTER 2025-04-08 10:54 | Emergency (ER) | payer MEDICARE, SELFPAY ==
--- OUTSIDE RECORDS SUMMARY | 2022-12-13 11:00 | XMS_ITS | Continuity of Care Document ---
Author Organization [facility] Address [id number] [address] Phone Care Team Providers Care Kiln Car Unloader Name Role Phone Storm Fraga DDS Unavailable Unavailable Medications Medication Instructions Dosage Effective Dates (start - stop) Status Comments Vyvanse 30 mg capsule take 1 capsule by oral route every day in the morning 30 MG - Active Procedures Procedure Date Prophylaxis Adult Bitewings Four Films Intraoral Periapical First Film Intraoral Periapical Each Additional Film Intraoral Periapical Each Additional Film Intraoral Periapical Each Additional Film Panoramic Film Periodic Oral Evaluation Established Patient Community Health Worker Patient Face To Face Limited Oral Evaluation Problem Focused Pulpal Debridement, Primary And Permanen t Teeth Intraoral Periapical First Film Panoramic Film Bitewings Four Films Intraoral Periapical First Film Intraoral Periapical Each Additional Film Intraoral Periapical Each Additional Film Intraoral Periapical Each Additional Film Prophylaxis Adult Topical Fluoride Varnish; Therapeutic Ap plication Periodic Oral Evaluation Established Patient EDR Approval Note Prophylaxis Adult Topical Fluoride Varnish; Therapeutic Ap plication Bitewings Four Films Intraoral Periapical First Film Intraoral Periapical Each Additional Film Intraoral Periapical Each Additional Film Intraoral Periapical Each Additional Film Periodic Oral Evaluation Established Patient EDR Approval Note Resin-Based Composite One Surface, Posterior Resin-Based Composite One Surface, Posterior EDR Approval Note Oral Hygiene Instructions Nutritional Counseling For Control Of De ntal Disea Caries Moderate Risk Exempt From Sealant Measure Limited Oral Evaluation Problem Focused Post Op No Charge EDR Approval Note EDR Approval Note Resin-Based Composite One Surface, Posterior Resin-Based Composite One Surface, Posterior EDR Approval Note EDR Approval Note [place] Porcelain/Ceramic Substrate Self-management Goals Reviewed 18 Oral Hygiene Instructions Nutritional Counseling For Control Of De ntal Disea Caries Moderate Risk Exempt From Sealant Measure EDR Approval Note EDR Approval Note [place] Prep EDR Approval Note EDR Approval Note Anterior (Excluding Final Pentecostalism) M Core Buildup, Including Any Pins 2017 Oral Hygiene Instructions Caries High Risk EDR Approval Note Resin-Based Composite Two Surfaces, Posterior Resin-Based Composite One Surface, Posterior Resin-Based Composite One Surface, Posterior EDR Approval Note EDR Approval Note Molar (Excluding Final Pentecostalism) Core Buildup, Including Any Pins 2017 EDR Approval Note Oral Hygiene Instructions Caries Moderate Risk Pulpal Debridement, Primary And Permanen t Teeth EDR Approval Note Intraoral Periapical First Film Intraoral Periapical Each Additional Film Intraoral Periapical Each Additional Film Intraoral Periapical Each Additional Film Bitewings Four Films Panoramic Film Prophylaxis Adult Comprehensive Oral Evaluatio n New Or Established Topical Fluoride Varnish; Therapeutic Ap plication EDR Approval Note EDR Approval Note Oral Hygiene Instructions Caries Moderate Risk Advance Directives Directive Yes / No Effective Date File Name No Information Encounters Encounter Description Practice Location Reason(s) For Visit Diagnoses Date Provider Providers Copied on Encounter [facility], [id number], [id number], [place] tel:[phone] [facility] No Information 3 Flakito Inman. [address] [place], [address], [place]. tel:[phone] Referring Provider: Storm Wood, [address] [place], [address]. tel:[phone] [facility], [id number]- [place], [place], [id number], [place] tel:[phone] [facility] No Information 3 [facility]. [address], [place], [id number], [place]. tel:[phone] Referring Provider: Manager Of Learning, [address] [place], [address]. tel:[phone] [facility], [id number]- [place], [place], [id number], [place] tel:[phone] [facility] No Information 3 Flakito Inman. [address] [place], [address], [place]. tel:[phone] Referring Provider: Storm Wood, [address] [place], [address]. tel:[phone] [facility], [id number]- [place], [id number], [place] tel:[phone] [facility] Encounter for dental exam and cleaning w/o abnormal findings 2- 9 No Information [facility], [id number]- [place], [id number], [place] tel:[phone] [facility] Encounter for dental exam and cleaning w/o abnormal findings 2 8 Flakito Inman. [address] [place], [address], [place]. tel:[phone] Referring Provider: Storm Wood, [address] [place], [address]. tel:[phone] [facility], [id number]- [place], [place], [id number], [place] tel:[phone] [facility] Encounter for dental exam and cleaning w/o abnormal findings 2 0 8 No Information [facility], [id number]- [place], [place], [id number], [place] tel:[phone] [facility] Encounter for dental exam and cleaning w/o abnormal findings 8 No Information [facility], [id number]- [place], [place], [id number], [place] tel:[phone] [facility] Encounter for dental exam and cleaning w/o abnormal findings 8 Flakito Inman. [address] [place], [address], [place]. tel:[phone] Referring Provider: Storm Wood, [address] [place], [address]. tel:[phone] [facility], [id number]- [place], [place], [address], [place] tel:[phone] [facility] Encounter for dental exam and cleaning w/o abnormal findings 8 Luis Albreto Murphy. [address] [place], [address], [place]. tel:[phone] Referring Provider: Jeffrey Whiting, [address] [place], [address]. tel:[phone] [facility], [id number]- [place], [place], [id number], [place] tel:[phone] [facility] Encounter for dental exam and cleaning w/o abnormal findings 8 Flakito Inman. [address] [place], [address], [place]. tel:[phone] Referring Provider: Storm Wood, [address] [place], [address]. tel:[phone] [facility], [id number]- [place], [id number], [place] tel:[phone] [facility] Encounter for dental exam and cleaning w/o abnormal findings 0 8 Flakito Inman. [address] [place], [address], [place]. tel:[phone] Referring Provider: Storm Wood, [address] [place], [address]. tel:[phone] [facility], [id number]- [place], [place], [id number], [place] tel:[phone] [facility] Encounter for dental exam and cleaning w/o abnormal findings 8 Flakito Inman. [address] [place], [address], [place]. tel:[phone] Referring Provider: Storm Wood, [address] [place], [address]. tel:[phone] [facility], [id number]- [place], [id number], [place] tel:[phone] [facility] Encounter for dental exam and cleaning w/o abnormal findings 8 Flakito Inman. [address] [place], [address], [place]. tel:[phone] Referring Provider: Storm Wood, [address] [place], [address]. tel:[phone] [facility], [id number]- [place], [id number], [place] tel:[phone] [facility] Encounter for dental exam and cleaning w/o abnormal findings 8 Luis Alberto Murphy. [address] [place], [address], [place]. tel:[phone] Referring Provider: Jeffrey Whiting, [address] [place], [address]. tel:[phone] [facility], [id number]- [place], [place], [id number], [place] tel:[phone] [facility] Encounter for dental exam and cleaning w/o abnormal findings 7 Luis Alberto Murphy. [address] [place], [address], [place]. tel:[phone] Referring Provider: Jeffrey Whiting, [address] [place], [address]. tel:[phone] Family History Family Member Type Diagnosis Age At Onset Mother Problem (finding) Payers Payer name Insurance type Covered alliance party ID Claudy johnson(s) [facility] [id number] Social History Type Description Quantity Date Captured Comments Alcohol Use Details No Caffeine Use Details Unknown Tobacco Use Status No Information Smoking Status No Information Sex Female Sexual Orientation Heterosexual Gender Identity Female Chief Complaint And Reason For Visit No Information Reason For Referral Reason For Referral No Information History Of Present Illness Encounter Date Complaint History Of Prese nt Illness No Information Functional Status Date Functional Assessmen t No Information Instructions Date Instruction Additional Infor mation Lifestyle education Related to D ental Examination Lifestyle education Related to D ental Examination Lifestyle education Related to D ental Examination Lifestyle education Related to D ental Examination Lifestyle education Related to D ental Examination Lifestyle education Related to D ental Examination Lifestyle education Related to D ental Examination Lifestyle education Related to D ental Examination Lifestyle education Related to D ental Examination Lifestyle education Related to D ental Examination Lifestyle education Related to D ental Examination Lifestyle education Related to D ental Examination Assessments Type Assessment Date No Information Patient Care Teams Name Effective Dates (start - stop) Status Members No Information
[2025-04-08 10:59] VITALS: BP 109/66; PULSE 74; RESP 16; TEMP 36.5; O2SAT 99; BMI 29.0
--- OUTSIDE RECORDS SUMMARY | 2025-04-08 11:00 | XMS_ITS | Patient Health Record ---
Author Organization [facility] Address [address] [place] [address] Care Team Providers Care Flatbed Stitcher Name Role Phone Karsten Muniz Primary Care Provider KARSTEN MUNIZ MD Unavailable Unavaila ble Allergies No Known Allergies Reason For Referral No Information Medications Medication SIG (Take, Route, Frequency, Duration) Notes Start Date End Date Status Lasix 20 MG Tablet 1 tablet Orally Once a day PRN fluid retention; Duration: 30 day(s) Active Depo-Provera 150 MG/ML Suspension 1 mL Intramuscular Not-Takin g Ibuprofen 800 MG Tablet 1 tablet with fo od or milk as needed Orally Three times a day Active Pantoprazole Sodium 40 MG Tablet Delayed Release 1 tablet Orally Once a day; Duration: 90 days 09/10/2022 Active Social History Tobacco Use: Social History Observation Description Date Details (start date - stop date) Never Smoker NA - NA Social History Tobacco Use: Social Info Question Answer Notes xTobacco Use/Smoking Are you a nonsmoker Section Notes: 03/25/22 03/25/22 03/25/22 03/25/22 03/25/22 03/25/22 Problems Problem Type SNOMED Code ICD Code Onset Dates Problem Status W/U Status Risk Notes Problem Bronchitis (96753316) Bronchitis (J40) Active confirmed Problem Acute pharyngitis (063634727) Pharyngitis, unspecified etiology (J02.9) Active confirmed Problem Amenorrhea (78002848) Amenorrhea (N91.2) Active confirmed Problem Edema (446500582) Fluid retention (R60.9) Active confirmed Problem Crushing injury of finger (27587084) Crushing injury of finger, initial encounter (S67.10XA) Active confirmed Problem Unprotected sexual intercourse (7636902) Unprotected sexual intercourse (Z72.51) Active confirmed Problem Cough (56481088) Cough (R05.9) Active confirmed Problem Nausea and vomiting (77437174) Nausea and vomiting, unspecified vomiting type (R11.2) Active confirmed Problem alcohol syndrome (599120019) alcohol syndrome (Q86.0) Active confirmed Problem Non-infective enteritis and colitis (776864667) Dyspeptic diarrhea (K52.9) Active confirmed Plan Of Treatment No Information Insurance Providers Payer Name Payer Address Payer Phone Subscriber Number Group Number Insured Name Patient Relationship to Insured Coverage Start Date Coverage End Date [facility] [employer] [address] [address] [place] [address] [id number] Vickie Soto Self - patient is the insured [place] Medicaid [address] [place] [address] [id number] Vickie Soto Self - patient is the insured Medications Administered Medication Instructions Date of Administration Dosage Notes Depo-Provera 11/27/2021 150 mg Pt brought m ed with her from pharmacy. Pt tolerated well/advised to wait 20 min Depo-Provera 02/19/2022 150 mg Vial supplie d by patient from pharmacy. [facility] [id number] pt tolerated well/instructed towait 20 min DEPO-Medrol 12/14/2021 40 mg NDC: [address]-32 Patient tolerated well, advised to stay 20 min in nic dexAMETHasone 12/14/2021 4 mg NDC: 60538-305-15 Patient tolerated well, advised to wait 20 min in clinic dexAMETHasone 07/04/2022 8 mg [id number] Medical (General) History Medical History History ICD Code Amenorrhea N91.2 Nausea & vomiting R11.2 Gastroenteritis K52.9
--- NOTE | 2025-04-08 11:11 | W.ED.GENADLT ---
HPI - General Adult General: Chief complaint: General Medical Stated complaint: wants preg test Time Seen by Provider: 04/08/25 11:05 Source: patient Mode of arrival: ambulatory Limitations: no limitations History of Present Illness: Patient is a 24-year-old female who presents to ED today requesting confirmation. She states her and her significant other have been trying to conceive over the past 5 years and have been unsuccessful. She states she got a positive test this morning-she does have a picture of the test on her phone and there is a faint positive line and is requesting confirmation. She has no physical complaints at this time. Onset (ago): hour(s) Associated symptoms: Deny nausea or vomiting Treatments prior to arrival: none Related Data Previous Rx's ?Medication ?Instructions ?Recorded amoxicillin 875 mg-potassium 1 tab PO BID #19 tabs 01/30/25 clavulanate 125 mg tablet chlorhexidine gluconate 0.12 % 15 ml buccal DAILY #120 mL 01/30/25 mouthwash (Peridex) lidocaine HCl 2 % mucosal solution 15 ml mucous membrane Q4H PRN pain 01/30/25 (Lidocaine Viscous) #100 mL naproxen 500 mg tablet 500 mg PO Q12H PRN pain #10 tabs 01/30/25 ondansetron 4 mg disintegrating 4 mg PO .q6-8h PRN nausea and 01/30/25 tablet vomiting #10 tabs Allergies Allergy/AdvReac Type Severity Reaction Status Date / Time No Known Allergies Allergy Verified 04/08/25 11:03 Review of Systems GI: Denies: abdominal pain, nausea, vomiting or change in bowel habits : Reports: irregular period; Denies: flank pain, dysuria, hematuria, vaginal bleeding, vaginal discharge or pelvic pain [facility] ED PFSH: Medical History Ankle pain, left Intellectual disability Mood disorder alcohol syndrome Surgical History History of dental surgery Family History Family/Other Diabetes uncle Father Heart disease Grandfather Heart disease Other Breast cancer Denies family history of Colon cancer Ovarian cancer Hypercholesteremia Hypertension Uterine cancer Thyroid disease Stroke Social History Smoking and tobacco/nicotine status: current some day tobacco/nicotine user (vape) e-cigarettes Substance/Drug Use: never Female Reproductive History: Date of last menstrual period: 03/08/25 Physical Exam Const: COMMON NORMALS: no acute distress, patient oriented x3, no limitations, alert and well nourished GENERAL APPEARANCE: cooperative GI: COMMON NORMALS: Normal to inspection, nondistended, normoactive bowel sounds present, Soft to palpation, non-tender, No hepatosplenomegaly present and no masses PALPATION: Yes Soft to palpation and Yes No hepatosplenomegaly present : COMMON NORMALS: Yes no CVA tenderness BLADDER/KIDNEY EXAM: Yes no CVA tenderness Back/Pelvis: COMMON NORMALS: no CVA tenderness Neuro: COMMON NORMALS: patient oriented x3 SENSORIUM/ORIENTATION: Yes alert Course Vital Signs: Vital signs: Vital Signs Temperature 97.7 F 04/08/25 10:59 Pulse Rate 74 04/08/25 10:59 Respiratory Rate 16 04/08/25 10:59 Blood Pressure 109/66 04/08/25 10:59 Pulse Oximetry 99 04/08/25 10:59 Oxygen Delivery Me thod Room Air 04/08/25 10:59 MDM - General Adult Medical Decision Making hcg quant performed and results are <1.0. Spoke about reaching out to her PCP and/or Women's Health clinic for further evaluation regarding fertility testing. She does states her partner had semen analysis performed showing a low count but this was never followed up on. Spoke to her on this also-this needs further follow up as well. Lab Data I reviewed the patient's lab results. Laboratory Results Ser , Semi-Qnt < 1.00 mIU/mL 04/08/25 12:18 No radiology studies performed this visit Discharge Plan Discharge Patient Disposition: Home Clinical Impression: test negative Condition: Stable Prescriptions: No Action amoxicillin-pot clavulanate 875-125 mg tablet 1 tab PO BID Qty: 19 0RF lidocaine HCl [Lidocaine Viscous] 2 % solution 15 ml mucous membrane Q4H PRN (Reason: pain) Qty: 100 0RF Rx Instructions: Swish and spit ondansetron 4 mg tablet,disintegrating 4 mg PO .q6-8h PRN (Reason: nausea and vomiting) Qty: 10 0RF naproxen 500 mg tablet 500 mg PO Q12H PRN (Reason: pain) Qty: 10 0RF chlorhexidine gluconate [Peridex] 0.12 % mouthwash 15 ml buccal DAILY Qty: 120 0RF Rx Instructions: Swish and spit Discharge Orders: Discharge ED (Routine); Ordered 04/08/25 Ordered By: Valeri Hussein Referrals: Dannielle Miller FNP [Primary Care Provider, Family Practice] Patient Instructions: Patient Portal & Osmani Instructions Print Language: Lithuanian Coding Level of Care Code ED Vp Talent Management for Heidy Eaton
--- NOTE | 2025-04-11 07:31 | DCPLANNER ---
messaged womens [facility] for er f/u
== END 2025-04-08 13:04 | disposition home or self-care (01) ==
PROVIDERS: Emergency Provider Physician Assistant; PCP Nurse Practitioner Family
DX: Z32.02 Encounter for pregnancy test, result negative (principal); F17.290 Nicotine dependence, other tobacco product, uncomplicated
CPT/HCPCS: 36415; 84702; 99283